=== PATIENT | female | born 1985 | race Caucasian/White ===

== ENCOUNTER → 2017-01-26 | Outpatient (CLI) | payer OTHER ==
--- NOTE | 2017-01-26 17:07 | RAD ---
Examination: Targeted ultrasound left breast History: History of left breast mass Comparison: None available Findings: From 11 to 1:00 position there are 2 tiny cystic structures measuring 4.4 mm and 7.9 mm probably cysts. At 6:30 position in the retroareolar region there is a 2.9 x 2.2 x 1.7 cm heterogeneous region identified without internal vascular flow. Impression: At 6:30 position in the retroareolar region there is a 2.9 x 2.2 x 1.7 cm heterogeneous region identified without internal vascular flow which could be debris within a duct, or galactocele or mass within the duct or fibroadenoma or focal infection in the appropriate clinical setting. BI-RADS: 0. Clinical correlation is recommended. A follow-up mammogram can be useful.
== END | disposition home or self-care (01) ==
LOC: US 15:54
PROVIDERS: ATTEND Advanced Practice Midwife
DX: R92.8 Other abnormal and inconclusive findings on diagnostic imaging of breast (principal)
CPT/HCPCS: 76641